=== PATIENT | male | born 1990 | race African-American/Black ===

== ENCOUNTER 2024-11-14 12:14 | Emergency (ER) | payer MEDICAID ==
[~2024-11-14] VITALS: Ht 188 cm; Wt 100.6 kg
[2024-11-14 12:23] VITALS: O2SAT 100
[2024-11-14] MEDS ORDERED: KETO10TA2 MT (13:49)
[2024-11-14] MEDS ORDERED: CYCL10TA21 MT (13:49)
[2024-11-14 14:14] VITALS: BP 142/80; PULSE 74; RESP 16; TEMP 36.6; O2SAT 100
== END 2024-11-14 14:15 | disposition home or self-care (01) ==
LOC: ER 12:14
DX: M54.2 Cervicalgia (principal); M25.571 Pain in right ankle and joints of right foot; R03.0 Elevated blood-pressure reading, without diagnosis of hypertension; M54.50 Low back pain, unspecified; M48.061 Spinal stenosis, lumbar region without neurogenic claudication; V89.2XXA Person injured in unspecified motor-vehicle accident, traffic, initial encounter; Y93.89 Activity, other specified; Y92.410 Unspecified street and highway as the place of occurrence of the external cause; Y99.8 Other external cause status
CPT/HCPCS: 71045; 72131; 73600; 99284